=== PATIENT | female | born 1950 ===

== ENCOUNTER 2018-01-31 23:43 | Inpatient (IN) | payer MEDICARE, OTHER ==
[~2018-01-31] VITALS: Ht 154.9 cm; Wt 95.3 kg
--- NOTE | ~2018-01-31 | PR ---
[place], [place] PROGRESS NOTE NAME: [facility] [id number] UNIT #: [id number] ROOM: 310 DOCTOR: MARCIO BOLES MD BIRTHDATE: [birth year] DOS: 02/06/2018 PSYCHIATRIC PROGRESS NOTE SUBJECTIVE: The patient seen and spoke with the staff. Per staff, the patient is doing well. No behavior problems or issues. Medication compliant. Per nursing staff, the patient's mood goes up and down. Sometimes, she is very pleasant and cooperative. As per staff, sometimes she spends most of the time in her room, but she comes out also. The patient was pleasant and cooperative. She was in the day area watching TV. She said that she is feeling better today, also slept well last night. She denied depressed mood or hopelessness. Denied any other neurovegetative signs and symptoms of depression. She said that medication is helping her. She denied any side effect from the medication. MENTAL STATUS EXAMINATION: Pleasant and cooperative. Described her mood as "better." Affect, mood congruent. Thought process goal directed. No flight of ideas, loosening of association. She denied auditory or visual hallucination. No delusion or paranoia noted. She denied suicidal ideation, intent or plan. She also denied any homicidal ideation, intent or plan. PLAN: 1. Continue current medication and care. 2. Continue redirection. 3. Supportive care. 4. Encourage activities and groups. MARCIO BOLES MD CM:PNTRANS [id number] MARCIO BOLES MD 02/07/18 1220 interface
--- NOTE | ~2018-01-31 | PR ---
[place], [place] PROGRESS NOTE NAME: NEGRO EARL UNIT #: [id number] ROOM: 310 DOCTOR: MARCIO BOLES MD BIRTHDATE: [birth year] DOS: 02/07/2018 PSYCHIATRIC PROGRESS NOTE SUBJECTIVE: The patient seen and spoke with staff. Per staff, the patient is doing well. Slept all night. Medication compliant. No behavior problems or issues, attending groups. The patient was pleasant and cooperative. She was in the day area and she said that she is feeling "good." Denied depressed mood or hopelessness. Denied any other neurovegetative signs and symptoms of depression. She reports good sleep and appetite. She said the medications are helping her. MENTAL STATUS EXAMINATION: Pleasant and cooperative. Described her mood as "good." Affect was bright. Thought process goal directed. No flight of ideas, loosening of association. She denied auditory or visual hallucination. No delusion or paranoia noted. She denies suicidal ideation, intent or plan. She also denied any homicidal ideation, intent or plan. PLAN: 1. Continue current medications and care. 2. Continue redirection. 3. Supportive care. MARCIO BOLES MD CM:PNNICKY [id number] MARCIO BOLES MD 02/08/18 0408 interface
--- NOTE | ~2018-01-31 | PR ---
[place], [place] PROGRESS NOTE NAME[id number] UNIT #: [id number] ROOM: 310 DOCTOR: MARCIO BOLES MD BIRTHDATE: [birth year] DOS: 02/05/2018 PSYCHIATRIC PROGRESS NOTE SUBJECTIVE: The patient seen and spoke with the staff. Per staff, the patient is doing better. No behavior problems or issues. Compliant with her medication. The patient was in her room on her bed. She said that she is not doing good because this place is boring and she is going "crazy." She reports being depressed with suicidal ideation, but no intent or plan. She denied any side effect from the medication. MENTAL STATUS EXAMINATION: Pleasant and cooperative. Described his mood as "down." Affect was flat, constricted. Thought process goal directed. No flight of ideas, loosening of association. She denied auditory or visual hallucination. No delusion or paranoia noted. She reports of suicidal ideation, but no intent or plan. Denied any homicidal ideation, intent or plan. Insight and judgment was poor to fair. PLAN: 1. I will increase her Remeron to 30 mg at night. 2. Continue redirection. 3. Supportive care. 4. Encourage activities in groups. MARCIO BOLES MD CM:PNTRANS [phone] MARCIO BOLES MD 02/06/181716 interface
--- NOTE | ~2018-01-31 | WRIGHTHP ---
[place], [place] PATIENT HISTORY AND PHYSICAL EXAM NAME: NEGRO EARL UNIT #: [id number] ROOM: 310 DOCTOR: TYRONE TRINH MD BIRTHDATE: [birth year] DOS: 02/01/2018 INITIAL PSYCHIATRIC EVALUATION DATE OF EVALUATION: 02/02/2018 CHIEF COMPLAINT: "I just got so upset with my I was going to kill myself." HISTORY OF PRESENT ILLNESS: This is a 67-year-old female who presented to [facility] with a chief complaint of increased depression and suicidal thoughts. The patient has been residing at home after a stay at [facility]. On the day of admission, the patient reports that her got very upset with her because she had to attend to her ADLs and she in turn in an angry fit said that she was going to set herself on fire. Prior to this, however, she does endorse significant depressive symptoms and reports multiple neurovegetative symptoms that include decreased sleep with difficulty falling asleep, sleep continuity disturbance and second ride fare collector awakening, anergia, anhedonia, hopeless and helpless feelings, crying spells and inability to cope. She also reports that her appetite has not been good and she has been feeling very despondent over her significant failure in her overall health. She is admitted now to rule out organic factors to stabilize on medication, to engage in individual and polk milieu activity, returning to the least restrictive environment when psychiatrically stable. PAST MEDICAL HISTORY: Remarkable for vitamin D deficiency, seizure disorder, hypothyroidism, hyperlipidemia, hypertension, CVA, GERD, diabetes and a lengthy history of bipolar disorder. SOCIAL HISTORY: The patient does smoke cigarettes. She does not drink alcohol nor does she use illicit drugs. ALLERGIES: SHE DOES LIST ALLERGIES TO PENICILLIN. STRENGTHS: Good verbal skills, supportive family. WEAKNESSES: Poor coping skills, a long history of psychiatric illness. MENTAL STATUS: She is alert and oriented. Mood does seem to be very depressed with anxious overtones. There is no symptom suggestive of hypomania or arlyn. There are no auditory or visual hallucinations. No delusions, no paranoia. Speech rate and pattern is within normal limits. At times, she does appear to be somewhat pressured, but redirectable. Memory for the most part is intact. DIAGNOSIS: Bipolar type 1, depressed. PLAN: I will go ahead and discontinue her Trintellix due to ineffectiveness and start her on Remeron 15 mg at bedtime. Maintain her dose of Latuda at the present time. She does endorse significant anxiety, so will go ahead and start Vistaril as a nonaddicting alternative. I will utilize Vistaril at a dose of 25 [place], [place] PATIENT HISTORY AND PHYSICAL EXAM NAME: NEGRO EARL UNIT #: [id number] ROOM: 310 DOCTOR: TYRONE TRINH MD BIRTHDATE: [birth year] mg 3 times daily. We will explore with adoption social worker whether placement back at home is the best option or if another stint in a long-term care facility would be the most appropriate. We will discharge then when psychiatrically stable. TYRONE TRINH MD CM:HISPHYS:PATIENT HISTORY AND PHYSICAL EXAMINATION 3 6 TYRONE TRINH MD 02/02/18 0815 interface
--- NOTE | ~2018-01-31 | PR ---
[place], [place] PROGRESS NOTE NAME: NEGRO EARL UNIT #: [id number] ROOM: 310 DOCTOR: MICHELL SIMS DO BIRTHDATE: [birth year] DOS: 02/03/2018 CHIEF COMPLAINT: "I want my own wheelchair." SUMMARY OF VISIT: The patient was interviewed in the hallway. She was seated in a wheelchair. She readily engaged in conversation. The patient requests that her be able to bring her personal wheelchair from home. The patient reports that she slept well. MENTAL STATUS EXAMINATION: The patient is alert and oriented to person, place and time. Her mood is pleasant. Her affect is appropriate. PLAN: The patient may have her bring her wheelchair from home. Continue with current medication regimen. Engage in individual and polk milieu activity, returning to the least restrictive environment when psychiatrically stable. Michell Sims DO TYRONE TRINH MD CM:PNNICKY [id number] MICHELL SIMS DO 02/04/18 1240 interface
--- NOTE | ~2018-01-31 | PR ---
[place], [place] PROGRESS NOTE NAME: NEGRO EARL UNIT #: [id number] ROOM: 310 DOCTOR: MICHELL SIMS DO BIRTHDATE: [birth year] DOS: 02/04/2018 CHIEF COMPLAINT: "My is bringing my wheelchair today." SUMMARY OF VISIT: The patient was interviewed seated in the dining area today. She readily engaged in conversation. MENTAL STATUS EXAMINATION: The patient is alert and oriented. She is pleasant today. Her mood is moving toward euthymic. She has no obvious anxiety. Her affect is appropriate. Her memory remains intact. PLAN: We are going to continue the current medication regimen in place. The goal is to go home on Thursday with continued improvement. Continue to have the patient engage in individual and polk milieu activity, returning her to the least restrictive environment when psychiatrically stable. Michell Sims DO TYRONE TRINH MD CM:PNNICKY [id number] MICHELL SIMS DO 02/05/18 0052 interface
--- NOTE | ~2018-01-31 | DS ---
[place], [place] DISCHARGE SUMMARY NAME: NEGRO EARL UNIT #: [id number] ROOM: 310 DOCTOR: TYRONE TRINH MD BIRTHDATE: [birth year] DOS: 02/08/2018 CHIEF COMPLAINT: "I just got so upset with my . I was going to kill myself." HISTORY OF PRESENT ILLNESS: This is a 67-year-old female well known to me from her previous admission here to the [facility] unit as well as her stay at [facility]. The patient was sent here from [facility] Room with a chief complaint of increased depression with suicidal thoughts. The patient had been residing at home since her stay at [facility]. On the day of admission, the patient reports that she and her got into a heated argument because he was having increased difficulties attending to her ADLs adequately. She in turn in angry fits stated that she would just set herself on fire. Prior to this; however, she did endorse an increase in her depressive symptoms with multiple neurovegetative symptoms that included poor sleep and appetite, anergia, anhedonia, hopeless, helpless feelings, crying spells, and inability to cope. She reports her appetite has not been good and she feels that her overall health has declined. She is admitted now to rule out organic factors to attempt to stabilize on medication, to engage in individual and polk milieu activities, returning to the least restrictive environment when psychiatrically stable. PAST MEDICAL HISTORY: Remarkable for vitamin D deficiency, seizure disorder, hypothyroidism, hyperlipidemia, hypertension, CVA, GERD, diabetes and a lengthy history of bipolar disorder. SOCIAL HISTORY: She does not smoke cigarettes, does not drink alcohol or use illicit drugs. ALLERGIES: PENICILLIN. SUMMARY OF HOSPITAL COURSE: The patient was admitted to the hospital where her Trintellix was discontinued in lieu of Remeron 15 mg at bedtime. Remeron was utilized for its ability to improve sleep and appetite rapidly. Additionally, she was given Vistaril 25 mg 3 times daily to help curb her anxiety level. She was maintained on her Latuda dose of 40 mg at bedtime. She did report some mild sedation in the morning when she woke up with the Remeron, so the dose was increased from 15 to 30 mg at bedtime with good results. With the combination of Remeron 30, Latuda 40 and the Vistaril 25 mg t.i.d., the patient improved. Efforts were made to improve her home health services, her Thursday through Thursday services were excellent, but on the weekend, things tended to decline and the family needed more help. director of physiotherapy services was instrumental in setting up additional help for the weekend and once all this was in place, she was safely discharged back home. MENTAL STATUS AT DISCHARGE: She is alert and oriented with some time gaps. Mood is strongly trending towards euthymia. Affect is more appropriate. There is no arlyn, hypomania or psychosis. She denies suicidal, homicidal, or self-injurious thoughts. Memory is intact. [place], [place] DISCHARGE SUMMARY NAME: NEGRO EARL UNIT #: [id number] ROOM: 310 DOCTOR: TYRONE TRINH MD BIRTHDATE: [birth year] FINAL DIAGNOSES: Bipolar type 1, depressed. DISPOSITION: She is to return home. Her prescriptions have been e-scribed to [facility] in [place]. There are no acute medical issues at hand. Psychiatrically, she is stable and there are no acute issues. Her biopsychosocial needs are adequately being met by the community at large. TYRONE TRINH MD CM:GILMA [id number] TYRONE TRINH MD 02/08/18 6248 interface
[~2018-01-31 23:43] MED LIST: ABILIFY15 MG PO; ACETA325 MG PO; ASPIR 8181 MG PO; ATIVAN2 MG/ML IJ; Amitriptyline H10 MG PO; BRIN20TA PO; DULCOLAX10 M1 R; FLEET RC; GEODON20 M1 IJ; HYDROXYZINE HCL25 M1 PO; KEPPRA XR500 MG PO; KEPPRA500 MG PO; LAMICTAL25 MG PO; LATU80TA PO; LAXATIVE10 MG R; LIPITOR40 MG PO; METOPROLOL SUCC50 M1 PO; MILK OF MA400 MG/5 M PO; NORVASC10 MG PO; PRILOSEC10 MG PO; PRINIVIL40 MG PO; REMERON15 M2 PO; REMERON45 MG PO; REXULTI2 MG PO; ROBITUSSIN-DM 110 ML PO; SERTRALINE HYDR50 MG PO; SULFAMETHOXAZOL1 TA6 PO; SYNTHROID,LEVO88 MCG PO; Synthroid,Lev100 MCG PO; TRAMADOL50 MG PO; VITAMIN D50000 I3 PO; ZYPREXA10 M1 PO
[2018-02-01] MEDS ORDERED: AMBIEN5 MG PO (00:16)
[2018-02-01] MEDS ORDERED: PROAIR HFA8.5 GM INH (00:17)
[2018-02-01] MEDS ORDERED: CALCIUM 600 +1 EAC4 PO (00:19)
[2018-02-01] MEDS ORDERED: KEPPRA XR500 MG PO (00:21)
[2018-02-01] MEDS ORDERED: GLUCOPHAGE500 M1 PO (00:23)
[2018-02-01] MEDS ORDERED: LATUDA40 M1 PO (00:27)
[2018-02-01] MEDS ORDERED: BACLOFEN5 MG PO (00:28)
[2018-02-01] MEDS ORDERED: SENNA LAXATIVE1 EACH PO (00:29)
[2018-02-01] MEDS ORDERED: FOSAMAX70 M1 PO (00:30)
[2018-02-01] MEDS ORDERED: NICODERM CQ1 EAC1 T (00:32)
[2018-02-01] MEDS ORDERED: LEVOTHYROXINE75 MCG PO (00:32)
[2018-02-01] MEDS ORDERED: MYLICON, MYLANT80 MG PO (00:33)
[2018-02-01 13:35] VITALS: BP 140/89
[2018-02-01 20:01] VITALS: BP 148/87
[2018-02-01 22:05] LABS: BILIRUBIN NEGATIVE (NEGATIVE); BLOOD 1+ (NEGATIVE); CLARITY SL CLOUDY (CLEAR); COLOR YELLOW (YELLOW); GLUCOSE NEGATIVE (NEGATIVE); KETONE NEGATIVE (NEGATIVE); LEUKO ESTERASE 1+ (NEGATIVE); NITRITE POSITIVE (NEGATIVE); UROBILINOGEN 0.2 E.U./dl (0.2-1.0)
[2018-02-01 22:50] LABS: BACTERIA 3+; EPITHELIAL CELLS TNTC
[2018-02-02 06:53] LABS: BASO # 0.1 10*3/uL (0.0-0.1); BASO % 1.4 % (0.0-1.0); EOS # 0.1 10*3/uL (0.0-0.4); EOS % 2.6 % (1.0-4.0); HEMATOCRIT 40.2 % (37.0-47.0); HEMOGLOBIN 12.5 g/dl (12.0-16.0); LYMPH # 1.8 10*3/uL (1.3-4.4); LYMPH % 36.7 % (27.0-41.0); MEAN CELL VOLUME 85.9 fl (81.0-99.0); MEAN CORPUSCULAR HGB 26.7 pg (27.0-31.0); MEAN CORPUSCULAR HGB CONC 31.1 g/dl (33.0-37.0); MEAN PLATELET VOLUME 12.3 fl (9.6-12.3); MONO # 0.6 10*3/uL (0.1-1.0); NEUT # 2.3 10*3/uL (2.3-7.9); NEUT % 47.1 % (47.0-73.0); PLATELET COUNT AUTOMATED 207 10*3/uL (130-400); RED BLOOD COUNT 4.68 10*6/uL (4.10-5.10); RED CELL DISTRI WIDTH 13.6 % (0-14.5)
[2018-02-02 07:08] LABS: ALBUMIN 3.5 gm/dl (3.1-4.5); ALKALINE PHOSPHATASE 71 U/L (45-117); BUN 9 mg/dl (7-24); CHLORIDE 103 mmol/L (98-107); CHOLESTEROL 174 mg/dL (<200); CREATININE 0.49 mg/dL (0.55-1.02); HDL CHOLESTEROL 44 mg/dl (40-60); LDL CHOLESTEROL 108 mg/dL (9-159); POTASSIUM 3.5 mmol/L (3.5-5.1); SGOT/AST 39 IU/L (3-35); SGPT/ALT 54 U/L (12-78); SODIUM 141 mmol/L (136-145); TOTAL PROTEIN 7.4 gm/dL (6.4-8.2); TRIGLYCERIDES 111 mg/dl (<150); VLDL CHOLESTEROL 22 mg/dL (6-40)
[2018-02-02 07:54] VITALS: BP 135/77
[2018-02-02 08:53] LABS: VITAMIN D, 25-HYDROXY 43.2 ng/mL (30-100)
[2018-02-02 19:45] VITALS: BP 118/69
[2018-02-03 07:38] VITALS: BP 112/70
[2018-02-03 19:40] VITALS: BP 120/64
[2018-02-04 07:23] LABS: BASO % 0.7 % (0.0-1.0); EOS # 0.1 10*3/uL (0.0-0.4); EOS % 2.3 % (1.0-4.0); HEMATOCRIT 37.8 % (37.0-47.0); HEMOGLOBIN 11.8 g/dl (12.0-16.0); LYMPH # 2.7 10*3/uL (1.3-4.4); MEAN CELL VOLUME 87.3 fl (81.0-99.0); MEAN CORPUSCULAR HGB 27.3 pg (27.0-31.0); MEAN CORPUSCULAR HGB CONC 31.2 g/dl (33.0-37.0); MEAN PLATELET VOLUME 11.3 fl (9.6-12.3); MONO # 0.4 10*3/uL (0.1-1.0); MONO % 7.2 % (3.0-9.0); NEUT # 2.3 10*3/uL (2.3-7.9); NEUT % 40.6 % (47.0-73.0); PLATELET COUNT AUTOMATED 248 10*3/uL (130-400); RED BLOOD COUNT 4.33 10*6/uL (4.10-5.10); RED CELL DISTRI WIDTH 13.7 % (0-14.5); WHITE BLOOD COUNT 5.6 10*3/uL (4.8-10.8)
[2018-02-04 07:33] VITALS: BP 126/69
[2018-02-04 07:34] LABS: BUN 12 mg/dl (7-24); CHLORIDE 105 mmol/L (98-107); CREATININE 0.64 mg/dL (0.55-1.02); POTASSIUM 3.5 mmol/L (3.5-5.1); SODIUM 144 mmol/L (136-145)
[2018-02-04 17:04] LABS: LEVETIRACETAM (KEPPRA) 716936 1.8 ug/mL (10.0-40.0)
[2018-02-04 20:02] VITALS: BP 129/59
[2018-02-05 07:43] VITALS: BP 130/68
[2018-02-05 20:02] VITALS: BP 125/73
[2018-02-06 07:43] VITALS: BP 134/70
[2018-02-06 19:47] VITALS: BP 124/79
[2018-02-07 07:49] VITALS: BP 149/70
[2018-02-07 19:50] VITALS: BP 132/90
[2018-02-07 19:52] VITALS: BP 132/90
[2018-02-08 07:28] VITALS: BP 138/70
[2018-02-08] MEDS ORDERED: MIRTAZAPINE30 M2 PO (08:49)
[2018-02-08] MEDS ORDERED: HYDROXYZINE PAM25 M1 PO (08:49)
[2018-02-08] MEDS ORDERED: LATU40TA PO (08:49)
== END 2018-02-08 13:17 | disposition home or self-care (01) | DRG 885 ==
LOC: 3N 23:43
PROVIDERS: Internal Medicine; Registered Nurse
DX: F31.30 Bipolar disorder, current episode depressed, mild or moderate severity, unspecified (principal); R45.851 Suicidal ideations; E11.9 Type 2 diabetes mellitus without complications; N39.0 Urinary tract infection, site not specified; G40.909 Epilepsy, unspecified, not intractable, without status epilepticus; Z71.6 Tobacco abuse counseling; I10 Essential (primary) hypertension; E55.9 Vitamin D deficiency, unspecified; K21.9 Gastro-esophageal reflux disease without esophagitis; E03.9 Hypothyroidism, unspecified; E78.5 Hyperlipidemia, unspecified; F17.210 Nicotine dependence, cigarettes, uncomplicated; Z86.73 Personal history of transient ischemic attack (TIA), and cerebral infarction without residual deficits; Z98.891 History of uterine scar from previous surgery; Z88.0 Allergy status to penicillin; Z80.42 Family history of malignant neoplasm of prostate; Z82.0 Family history of epilepsy and other diseases of the nervous system